=== PATIENT | male | born 1985 ===

== ENCOUNTER 2018-05-07 14:02 | Emergency (ER) | payer OTHER ==
[2018-05-07 15:28] VITALS: RESP 18; TEMP 99.4
--- NOTE | 2018-05-07 16:28 | ED PDOC ---
Arrival/HPI - General Chief Complaint: Dental Pain Time Seen by Provider: 05/07/18 14:07 Historian: Patient - History of Present Illness Narrative History of Present Illness (Text): 05/08/18 00:01 32-year-old male presents today with worsening right lower dental pain. Patient states he started taking ampicillin given by a friend. Patient states the pain started a few days ago in the right lower jaw and is now radiating to the ear and across the gumline. He denies trismus or drooling. No fevers or chills. Patient states she's been taking Motrin for pain with some improvement. No other complaints Past Medical History - Provider Review Nursing Documentation Reviewed: Yes - Travel History Have you recently traveled outside [place] w/in the past 3 mons?: No - Infectious Disease Hx of Infectious Diseases: None - Psychiatric Hx Substance Use: No - Anesthesia Hx Anesthesia: No Family/Social History - Physician Review Nursing Documentation Reviewed: Yes Family/Social History: Unknown Family HX Smoking Status: Unknown If Ever Smoked Hx Alcohol Use: Yes Frequency of alcohol use: Socially Hx Substance Use: No Allergies/Home Meds Allergies/Adverse Reactions: Allergies No Known Allergies Allergy (Verified 05/07/18 15:28) Review of Systems - Review of Systems Constitutional: absent: Fatigue, Fevers ENT: Other (dental pain). absent: Sore Throat, Sinus Congestion Respiratory: absent: SOB, Cough Cardiovascular: absent: Chest Pain, Palpitations Gastrointestinal: absent: Abdominal Pain, Nausea, Vomiting Neurological: absent: Headache, Dizziness Psychiatric: absent: Anxiety, Depression, Suicidal Ideation Physical Exam Vital Signs Reviewed: Yes Vital Signs Temp Pulse Resp BP Pulse Ox 05/07/18 15:23 99.4 F 70 18 134/94 H 99 Temperature: Afebrile Blood Pressure: Hypertensive Pulse: Regular Respiratory Rate: Normal Appearance: Positive for: Well-Appearing, Non-Toxic, Comfortable Pain Distress: None Mental Status: Positive for: Alert and Oriented X 3 - Systems Exam Head: Present: Atraumatic Conjunctiva: Present: Normal Ears: Present: Normal, NORMAL TM Mouth: Present: Moist Mucous Membranes, Normal Lips, Normal Tounge, Other (+ ttp over right lower molar; no edema, no erythema; no abscess noted. ). No: Drooling, Trismus Pharnyx: Present: Normal. No: ERYTHEMA, EXUDATE, TONSILS ENLARGED, Uvular Deviation, Muffled/Hoarse Voice Nose (External): Present: Atraumatic Neck: Present: Normal Range of Motion Respiratory/Chest: Present: Clear to Auscultation, Good Air Exchange. No: Respiratory Distress, Accessory Muscle Use Cardiovascular: Present: Regular Rate and Rhythm, Normal S1, S2. No: Murmurs Abdomen: No: Tenderness, Distention, Rebound, Guarding Back: Present: Normal Inspection Neurological: Present: GCS=15, Speech Normal Skin: Present: Warm, Dry, Normal Color Psychiatric: Present: Alert, Oriented x 3 Medical Decision Making ED Course and Treatment: 05/07/18 16:29 Patient is nontoxic well-appearing in no distress with stable vital signs No trismus or drooling, moist mucous membranes Amoxicillin toradol Patient reassessment: Patient is feeling better after medications. I advised follow-up with the dentist within the next 2 days. I advised immediate return is symptoms worsen persist or if new concerning symptoms develop Patient verbalizes understanding of discharge instructions and need for immediate followup. Impression: Toothache Motrin every 6 hours as needed for pain Amoxicillin 1 tablet 3 times daily 10 days tramadol; 1 tablet every 8 hours as needed for moderate to severe pain; may cause drowsiness Follow-up with the dentist within the next 2 days Follow up with the Primary care physician within the next 2 days. Return immediately if symptoms worsen persist or if new concerning symptoms develop [facility] [address] [place] [address] [place] [address] [phone] Reassessment Condition: Re-examined, Improved Disposition/Present on Arrival - Present on Arrival Any Indicators Present on Arrival: No History of DVT/PE: No History of Uncontrolled Diabetes: No Urinary Catheter: No History of Decub. Ulcer: No History Surgical Site Infection Following: None - Disposition Have Diagnosis and Disposition been Completed?: Yes Diagnosis: Pain, dental Disposition: HOME/ ROUTINE Disposition Time: 16:24 Patient Plan: Discharge Condition: GOOD Discharge Instructions (ExitCare): Dental Pain (DC) Additional Instructions: Motrin every 6 hours as needed for pain Amoxicillin 1 tablet 3 times daily 10 days tramadol; 1 tablet every 8 hours as needed for moderate to severe pain; may cause drowsiness Follow-up with the dentist within the next 2 days Follow up with the Primary care physician within the next 2 days. Return immediately if symptoms worsen persist or if new concerning symptoms develop [facility] [address] [place] [address] [address] [place], [place] [phone] Prescriptions: Amoxicillin 500 mg PO TID #30 tab Ibuprofen [Motrin] 600 mg PO Q6H PRN #20 tab PRN Reason: pain/fever reduction traMADol [Ultram] 50 mg PO Q6H PRN #6 tab PRN Reason: moderate to severe pain Referrals: [facility] [Outside] - Follow up with primary Carter Soni DMD [Non-Staff] - Follow up with primary Stevne Teran DMD [Staff Provider] - Follow up with primary Yolanda Singh MD [Medical Doctor] - Follow up with primary Forms: [employer] ([place]), WORK NOTE
[2018-05-07 16:57] VITALS: BP 135/82; PULSE 68; O2SAT 97
== END 2018-05-07 17:25 | disposition home or self-care (01) ==
LOC: ED 14:02
DX: K08.89 Other specified disorders of teeth and supporting structures (principal)
CPT/HCPCS: 96372; 99283; J1885